=== PATIENT | female | born 1975 | race Two or more races ===

== ENCOUNTER 2017-10-28 09:14 | Emergency (ER) | payer BC, OTHER ==
[2017-10-28] MEDS: SILVER SULFADIAZINE 1% 25 GM CR TOP (09:36)
== END 2017-10-28 09:49 | disposition home or self-care (01) ==
LOC: FTE 09:14
DX: T23.101A Burn of first degree of right hand, unspecified site, initial encounter (principal); X10.0XXA Contact with hot drinks, initial encounter; Y92.9 Unspecified place or not applicable
CPT/HCPCS: 16000; 99283-25